=== PATIENT | female | born 1965 | race Caucasian/White ===

== ENCOUNTER 2017-05-16 13:43 | Emergency (ER) | payer MEDICAID ==
[2017-05-16 13:49] VITALS: RESP 16
--- NOTE | 2017-05-16 15:25 | CPEKG ---
Heart Rate: 73 RR Interval: 822 P-R Interval: 156 QRSD Interval: 92 QT Interval: 404 QTC Interval: 446 P [place]: 22 QRS [place]: 62 T Wave [place]: 41 EKG Severity - BORDERLINE ECG - EKG Impression: SINUS RHYTHM EKG Impression: BORDERLINE T ABNORMALITIES, ANTERIOR LEADS Electronically Signed By: Travis Tafoya 16-May-2017 21:12:03
--- NOTE | 2017-05-16 15:27 | EDPHY ---
HPI/HX/ROS/PE/MDM Narrative: CHIEF COMPLAINT: Cough HPI: This patient is a 51 y/o female complaining of cough. She has felt poorly since [place] with persistent upper respiratory infection symptoms including cough. Her more "severe symptoms" started last Tuesday after her boyfriend had been sick with similar symptoms. She has a cough that is occasionally productive. She has not felt febrile or measured her temperature, but she has had chills. She has taken Mucinex D and NyQuil for symptom relief. No hemoptysis. She denies chest pain, shortness of breath, vomiting, diarrhea, urinary complaints, or other associated symptoms. REVIEW OF SYSTEMS: Aside from elements discussed in the HPI, a comprehensive 10-point review of systems was reviewed and is negative. PMH: Denies. SOCIAL HISTORY: Nonsmoker. Works as a nanny. Lives in [place]. PHYSICAL EXAM: General:Patient is alert, in no acute distress. ENT:Eyes are normal to inspection. ENT inspection normal. Neck: Normal inspection. Full range of motion. Respiratory:No respiratory distress. Breath sounds normal bilaterally. Cardiovascular: Regular rate and rhythm. Strong peripheral pulses. Normal cap refill. Abdomen:The abdomen is nontender to palpation. There are no peritoneal signs. There are normal bowel sounds. Back: Normal to inspection. No tenderness to palpation. Skin: Normal color. No rash. Warm and dry. Extremities: Normal appearance. Full range of motion. Neuro: Oriented x3. Normal motor function. Normal sensory function. ED Course: This 51 y/o female presents with cough ongoing for four months, worsening significantly in the last week. She is non-toxic appearing and lungs are clear to auscultation. Plan for chest x-ray to r/o pneumonia or other acute processes. EKG ordered prior to the start of my shift shows sinus rhythm. Chest x-ray negative for pneumonia. Evidence of bronchitis. Results discussed with patient. As her symptoms have been ongoing since January , she would like to try a course of antibiotics. Plan to discharge home in good condition with prescription for Azithromycin and Tessalon Perles. Follow up and return precautions discussed. She is comfortable with this plan. MDM: Exam is negative for evidence of PE, PNA, asthma, CHF, hypoxia. - Data Points Imaging Results: Imaging Impressions Chest X-Ray 05/16/17 14:16 Impression: Mild airways disease. No pneumonia. General Time Seen by Provider: 05/16/17 15:00 Initial Vital Signs: Initial Vital Signs Temperature (C) 36.6 C 05/16/17 13:47 Heart Rate 78 05/16/17 13:47 Respiratory Rate 16 05/16/17 13:47 Blood Pressure 158/100 H 05/16/17 13:47 O2 Sat (%) 96 05/16/17 13:47 O2 Delivery Mode Room Air Allergies/Adverse Reactions: No Known Allergies Allergy (Unverified 01/22/15 20:22) Home Medications: Medication Instructions Recorded LaMICtal 01/22/15 Prozac 10 MG (RX) 01/22/15 Ambien Cr 05/16/17 Azithromycin [Zithromax] 250 mg PO DAILY #6 tab 05/16/17 Benzonatate [Tessalon Pearles (RX)] 200 mg PO TID PRN #15 cap 05/16/17 Departure - Departure Disposition: Home, Routine, Self-Care Clinical Impression: Bronchitis Condition: Good Instructions: Benzonatate (By mouth), Acute Bronchitis (ED) Additional Instructions: Follow up with your primary care provider in 2-3 days. Take Azithromycin as prescribed. Take Tessalon Perles as prescribed for cough. Continue to take Mucinex and NyQuil as directed on the packaging as needed for symptom relief. Return to the emergency department for high fever, increased shortness of breath , chest pain, or other worsening of condition. Referrals: Shea Montalvo PA [Primary Care Provider] - As per Instructions Prescriptions: Azithromycin [Zithromax] 250 mg PO DAILY #6 tab Benzonatate [Tessalon Pearles (RX)] 200 mg PO TID PRN #15 cap PRN Reason: Cough, Severe Report Scribed for: Travis Tafoya Report Scribed by: Jessie Manuel Date of Report: 05/16/17 Time of Report: 15:27 Physician Review and Approval Statement: Portions of this note were transcribed by an ED scribe. I personally performed the history, physical exam, and medical decision making; and confirm the accuracy of the information in the transcribed note.
[2017-05-16 15:42] VITALS: BP 113/94; PULSE 75; TEMP 98.4; O2SAT 93
== END 2017-05-16 15:42 | disposition home or self-care (01) ==
DX: J20.9 Acute bronchitis, unspecified (principal)

== ENCOUNTER 2017-08-20 13:43 | Emergency (ER) | payer MEDICAID ==
[2017-08-20 13:47] VITALS: BP 141/87
--- NOTE | 2017-08-20 14:01 | EDPHY ---
H & P Smoking Status: Former smoker Time Seen by Provider: 08/20/17 13:53 HPI/ROS: CHIEF COMPLAINT: Right dorsal foot pain post shelf of falling onto foot HISTORY OF PRESENT ILLNESS: 52-year-old female states that 1 week ago a shelf fell onto the dorsum of her left foot while she was wearing sandals. She is complaining of reproducible pain and swelling this area ever since. No paresthesia. No discoloration. Able to bear weight albeit with pain. PHYSICAL EXAM (Prior to examination, patient consented to physical exam, hands were washed and my usual and customary physical exam procedures followed) 1) GENERAL: Well-developed, well-nourished, alert and oriented. Appears to be in no acute distress. 2) HEAD: Normocephalic 3) HEENT: Pupils equal, round, reactive to light bilaterally. 4) LUNGS: Breathing comfortably. 5) MUSCULOSKELETAL: Tender to palpation dorsal midfoot with noted soft tissue swelling. No discoloration. proximal tibia and fibula nontender .5th MT nontender negative Fall test, compartments soft 6) SKIN: Soft tissue swelling noted 7) VASCULAR: DP,PT pulses and cap refill present and brisk DIFFERENTIAL DIAGNOSIS: in no particular order including but not limited to fracture, sprain, compartment syndrome A postop shoe splint was applied by ER lead based paint technician. After application of the splint I returned and re-examined the patient. The splint was adequately immobilizing the joint and distal to the splint the patient's circulation and sensation were intact. Patient shows no signs of compartment syndrome. Was given orthopedic precautions. (Rosie Yeboah) Constitutional: Initial Vital Signs Temperature (C) 36.7 C 08/20/17 13:45 Heart Rate 73 08/20/17 13:45 Respiratory Rate 18 08/20/17 13:45 Blood Pressure 141/87 H 08/20/17 13:45 O2 Sat (%) 94 08/20/17 13:45 O2 Delivery Mode Room Air Allergies/Adverse Reactions: No Known Allergies Allergy (Unverified 01/22/15 20:22) Home Medications: Medication Instructions Recorded LaMICtal 01/22/15 Prozac 10 MG (RX) 01/22/15 Ambien Cr 04/02/18 Azithromycin [Zithromax] 250 mg PO DAILY #6 tab 05/16/17 Benzonatate [Tessalon Pearles (RX)] 200 mg PO TID PRN #15 cap 05/16/17 MDM/Departure - [facility] Imaging Results: Images reviewed myself (Rosie Yeboah) ED Course/Re-evaluation: I saw this patient independently based on established practice protocols. Care of patient under supervision of secondary supervising physician Dr Boyer . She was re-evaluation with serial examinations was recently at 2:50 p.m., discussed her imaging results. She is neurovascularly intact with no evidence of compartment syndrome. She has been splinted, will follow up with Podiatry. Usual and customary orthopedic precautions and instructions provided. (Rosie Yeboah) The patient was evaluated and managed by the Physician Gambling Broker. My co- signature indicates that I have reviewed this chart and I agree with the findings and plan of care as documented. I am the secondary supervising physician. (Lindsey Boyer) - Depart Disposition: Home, Routine, Self-Care Clinical Impression: Foot fracture, right Qualifiers: Encounter type: initial encounter Fracture type: closed Qualified Code(s): S92.901A - Unspecified fracture of right foot, initial encounter for closed fracture Condition: Good Instructions: Foot Fracture in Adults (ED) Additional Instructions: Return to the ER immediately if you experience discoloration, have worsening pain, numbness, tingling, or any other symptoms that concern you. If you received x-rays in the emergency department today, be advised, that ligamentous , tendon, muscular, and other non-bony injury cannot be fully ruled out. Try to keep your affected extremity elevated above the level of your chest, and keep cold packs on the affected area, for the next 48 hours. Referrals: Dejon Carbajal DPM [Doctor of Podiatric Medicine] - 2-3 days, call for appt.
== END 2017-08-20 15:04 | disposition home or self-care (01) ==
DX: S92.521A Displaced fracture of middle phalanx of right lesser toe(s), initial encounter for closed fracture (principal); Z87.891 Personal history of nicotine dependence; W18.39XA Other fall on same level, initial encounter; Y99.8 Other external cause status; Y93.89 Activity, other specified
CPT/HCPCS: L4386

== ENCOUNTER 2018-07-05 12:00 | Emergency (ER) | payer MEDICAID ==
--- NOTE | 2018-07-05 12:23 | EDPHY ---
H & P Time Seen by Provider: 07/05/18 12:06 HPI/ROS: Chief complaint. Vomiting diarrhea, headache HPI. 52-year-old female presents with complaint of 2 day history nausea vomiting diarrhea and headache. Some fever. No upper respiratory symptoms. Crampy abdominal pain that is generalized. She has myalgias. No cough or shortness of breath or chest discomfort. Patient was visiting her daughter last week and the daughter had similar symptoms. The patient tells me the symptoms were exactly the same. Otherwise no recent travel or bad food exposure. Denies urinary symptoms ROS 10 systems were reviewed and negative with the exception of the elements mentioned in the history of present illness Past Medical/Surgical History: Bipolar illness, depression, kidney stones, hysterectomy Social History: , nonsmoker, no alcohol Smoking Status: Former smoker Physical Exam: General Appearance: Alert pleasant well-developed female mild distress. Vital signs are stable Eyes: Pupils equal and round no pallor or injection. ENT, pharynx without injection. Mucous membranes are dry Respiratory: There are no retractions, lungs are clear to auscultation. Cardiovascular: Regular rate and rhythm. Gastrointestinal: Abdomen is soft with mild generalized discomfort. No masses. No organomegaly. Normal bowel sounds Neurological: Awake and alert, sensory and motor exams grossly normal. Skin: Warm and dry, no rashes. Musculoskeletal: Neck is supple nontender. Extremities symmetrical, full range of motion. Psychiatric: Patient is oriented X 3, there is no agitation. Constitutional: Initial Vital Signs Heart Rate 76 07/05/18 12:01 Respiratory Rate 18 07/05/18 12:01 Blood Pressure 112/43 L 07/05/18 12:01 O2 Sat (%) 90 L 07/05/18 12:01 O2 Delivery Mode Room Air Allergies/Adverse Reactions: No Known Allergies Allergy (Unverified 01/22/15 20:22) Home Medications: Medication Instructions Recorded LaMICtal 01/22/15 Prozac 10 MG (RX) 01/22/15 Ambien Cr 05/16/17 Promethazine HCl [Phenergan 25mg 25 mg PO Q6-8PRN PRN #10 tab 07/05/18 (*)] Medical Decision Making Procedures: IV normal saline with target of 2 liters ED Course/Re-evaluation: Re-evaluation at 2:00 p.m.. Patient really has no more headache or nausea. Feeling much better At 2:30 p.m. Patient has had 2 L of saline but still no urge to urinate. 3rd L of normal saline is ordered Re-evaluation again at 2:50 p.m.. Patient is stable. Patient, her , and I discussed laboratory evaluation, treatment plan including criteria for return importance of follow-up and further evaluation. They expressed understanding and agreement Differential Diagnosis: Apparent gastroenteritis. Her sister had same symptoms several days before this patient began have symptoms. I considered various causes of acute abdomen. I think that this is dehydration and vomiting and diarrhea illness - Data Points Laboratory Results: Laboratory Results 07/05/18 12:25 07/05/18 12:25 07/05/18 07/05/18 12:25 12:25 WBC 6.77 10^3/uL 10^3/uL (3.80-9.50) RBC 4.83 10^6/uL 10^6/uL (4.18-5.33) Hgb 14.9 g/dL g/dL (12.6-16.3) Hct 44.3 % % (38.0-47.0) MCV 91.7 fL fL (81.5-99.8) MCH 30.8 pg pg (27.9-34.1) MCHC 33.6 g/dL g/dL (32.4-36.7) RDW 12.3 % % (11.5-15.2) Plt Count 241 10^3/uL 10^3/uL (150-400) MPV 9.1 fL fL (8.7-11.7) Neut % (Auto) 74.9 % H % (39.3-74.2) Lymph % (Auto) 15.4 % % (15.0-45.0) Reagan % (Auto) 9.0 % % (4.5-13.0) Eos % (Auto) 0.1 % L % (0.6-7.6) Baso % (Auto) 0.3 % % (0.3-1.7) Nucleat RBC Rel Count 0.0 % % (0.0-0.2) Absolute Neuts (auto) 5.07 10^3/uL 10^3/uL (1.70-6.50) Absolute Lymphs (auto) 1.04 10^3/uL 10^3/uL (1.00-3.00) Absolute Monos (auto) 0.61 10^3/uL 10^3/uL (0.30-0.80) Absolute Eos (auto) 0.01 10^3/uL L 10^3/uL (0.03-0.40) Absolute Basos (auto) 0.02 10^3/uL 10^3/uL (0.02-0.10) Absolute Nucleated RBC 0.00 10^3/uL 10^3/uL (0-0.01) Immature Gran % 0.3 % % (0.0-1.1) Immature Gran # 0.02 10^3/uL 10^3/uL (0.00-0.10) Sodium 136 mEq/L mEq/L (135-145) Potassium 4.2 mEq/L mEq/L (3.5-5.2) Chloride 102 mEq/L mEq/L (97-110) Carbon Dioxide 22 mEq/l mEq/l (22-31) Anion Gap 12 mEq/L mEq/L (6-14) BUN 12 mg/dL mg/dL (7-23) Creatinine 1.0 mg/dL mg/dL (0.6-1.0) Estimated GFR 58 Glucose 111 mg/dL H mg/dL (70-100) Calcium 9.0 mg/dL mg/dL (8.5-10.4) Lipase 88 IU/L IU/L (23-300) Medications Given: Discontinued Medications Sodium Chloride (Ns) 1,000 mls @ 0 mls/hr IV EDNOW ONE; Wide Open PRN Reason: Protocol Stop: 07/05/18 12:29 Last Admin: 07/05/18 12:35 Dose: 1,000 mls Sodium Chloride (Ns) 1,000 mls @ 0 mls/hr IV EDNOW ONE; Wide Open PRN Reason: Protocol Stop: 07/05/18 12:29 Last Admin: 07/05/18 12:37 Dose: 1,000 mls Sodium Chloride (Ns) 1,000 mls @ 0 mls/hr IV EDNOW ONE; Wide Open PRN Reason: Protocol Stop: 07/05/18 14:35 Last Admin: 07/05/18 14:37 Dose: 1,000 mls Ketorolac Tromethamine (Toradol) 15 mg IVP EDNOW ONE Stop: 07/05/18 12:29 Last Admin: 07/05/18 12:35 Dose: 15 mg Promethazine HCl (Phenergan) 12.5 mg IVP EDNOW ONE Stop: 07/05/18 12:29 Last Admin: 07/05/18 12:35 Dose: 12.5 mg Departure - Departure Disposition: Home, Routine, Self-Care Clinical Impression: Dehydration Abdominal pain Qualifiers: Abdominal location: generalized Qualified Code(s): R10.84 - Generalized abdominal pain Condition: Good Instructions: Gastroenteritis (ED) Additional Instructions: Frequent, small sips fluids well nauseated. Gradual increase in fluids. Gradual increase in diet. Tylenol 1000 mg every 6 hr for achiness and fever Phenergan as needed for nausea vomiting Return for worsening symptoms Recheck in 1-2 days for continuing symptoms Referrals: Shea Montalvo PA [Primary Care Provider] - 2-3 days, if not improved Prescriptions: Promethazine HCl [Phenergan 25mg (*)] 25 mg PO Q6-8PRN PRN #10 tab PRN Reason: Nausea/Vomiting, Use 1st
[2018-07-05] MEDS ORDERED: NS 1,000 ML IV ONE ×3 (12:28→14:34)
[2018-07-05] MEDS ORDERED: PROMETHAZINE HCL 25 MG/ML INJ IVP ONE (12:28)
[2018-07-05] MEDS ORDERED: KETOROLAC 30 MG/1 ML SDV IVP ONE (12:28)
[2018-07-05 12:41] LABS: PLATELET COUNT 241 10^3/uL (150-400)
[2018-07-05 15:22] VITALS: BP 118/68
== END 2018-07-05 15:19 | disposition home or self-care (01) ==
LOC: SUPCPDRO 12:00
DX: R10.84 Generalized abdominal pain (principal); R11.2 Nausea with vomiting, unspecified; R19.7 Diarrhea, unspecified; E86.0 Dehydration; Z87.891 Personal history of nicotine dependence
CPT/HCPCS: 96374; J1885; J2550